=== PATIENT | female | born 1990 | race African-American/Black ===

== ENCOUNTER 2019-03-17 00:15 | Emergency (ER) | payer MEDICAID ==
[~2019-03-17] VITALS: Ht 172.7 cm; Wt 64.0 kg
[~2019-03-17 00:15] MED LIST: DEPAKOTE; GEODON; IBUP-2077 PO
[2019-03-17] MEDS: KETOROLAC 30MG/ML VIAL IV NR ×2 (01:00→02:58)
[2019-03-17 01:22] LABS: BASOPHILS % 0.9 % (0.0-2.0); EOSINOPHILS % 2.9 % (0.0-5.0); HEMATOCRIT. 36.8 % (36.0-48.0); HEMOGLOBIN. 12.3 g/dL (12.0-16.0); LYMPHOCYTES % 42.6 % (20.0-50.0); MEAN CORPUSCULAR HEMOGLOBIN 26.1 pg (28.0-32.0); MEAN CORPUSCULAR VOLUME 78.4 fL (81.0-99.0); MEAN PLATELET VOLUME 8.4 fl (7.4-10.4); MONOCYTES % 10.8 % (2.0-8.0); NEUTROPHILS % 42.8 % (40.0-76.0); PLATELET 241 x1000/uL (130-400); RED CELL DISTRIBUTION WIDTH 14.7 % (11.6-14.6)
[2019-03-17 01:27] LABS: CHLORIDE 105 mEq/L (98-107)
[2019-03-17 03:31] VITALS: BP 122/80
== END 2019-03-17 03:33 | disposition home or self-care (01) ==
LOC: ER 00:15
DX: A60.04 Herpesviral vulvovaginitis (principal); F12.90 Cannabis use, unspecified, uncomplicated
CPT/HCPCS: 36415; 80053; 81025; 85025; 96374; 96376; 99283; J1885

== ENCOUNTER 2019-09-05 08:29 | Emergency (ER) | payer MEDICAID ==
[~2019-09-05] VITALS: Ht 170.2 cm; Wt 71.0 kg
[2019-09-05] MEDS ORDERED: LORAZEPAM 0.5MG TABLET PO ONE (09:30)
[2019-09-05] MEDS ORDERED: IBUPROFEN 400MG TABLET PO ONE (11:30)
[2019-09-05 11:47] LABS: CLARITY URINE CLEAR (CLEAR); COLOR URINE YELLOW (YELLOW); KETONES URINE NEGATIVE (NEGATIVE); LEUKOCYTE ESTERASE URINE TRACE (NEGATIVE); NITRITE URINE NEGATIVE (NEGATIVE); OCCULT BLOOD URINE 3+ (NEGATIVE); PH URINE 7.5 (4.5-8.0); PROTEIN URINE NEGATIVE (NEGATIVE); SPECIFIC GRAVITY URINE 1.012 (1.005-1.030); UROBILINOGEN URINE 0.2 E.U./dL (0.2-1.0)
[2019-09-05] MEDS ORDERED: BACITRACIN ZINC OINT UDPKT TOP ONE (12:15)
[2019-09-05 13:00] VITALS: BP 114/67
== END 2019-09-05 14:08 | disposition home or self-care (01) ==
LOC: ER 08:39
DX: N39.0 Urinary tract infection, site not specified (principal); F41.9 Anxiety disorder, unspecified; F32.9 Major depressive disorder, single episode, unspecified; F12.10 Cannabis abuse, uncomplicated; Z88.2 Allergy status to sulfonamides
CPT/HCPCS: 81003; 81025; 99283; Z7610

== ENCOUNTER 2020-02-13 18:30 | Emergency (ER) | payer MEDICAID, OTHER ==
[~2020-02-13] VITALS: Ht 162.6 cm; Wt 73.0 kg
[2020-02-13 18:35] VITALS: BP 113/72
[2020-02-13] MEDS ORDERED: HYDROCODONE/ACETAMINOPHEN 5/325MG TABLET PO ONE (23:30)
[2020-02-13] MEDS ORDERED: ONDANSETRON 4MG ODT PO ONE (23:30)
[2020-02-14 00:03] LABS: BASOPHILS % 0.4 % (0.0-2.0); EOSINOPHILS % 6.9 % (0.0-5.0); HEMATOCRIT. 41.2 % (36.0-48.0); LYMPHOCYTES % 34.7 % (20.0-50.0); MEAN CORPUSCULAR HEMOGLOBIN 26.8 pg (28.0-32.0); MEAN CORPUSCULAR VOLUME 78.8 fL (81.0-99.0); PLATELET 226 x1000/uL (130-400); RED BLOOD CELL COUNT 5.22 mill/uL (4.2-5.4); RED CELL DISTRIBUTION WIDTH 14.1 % (11.6-14.6)
[2020-02-14 00:13] LABS: CHLORIDE 106 mEq/L (98-107)
[2020-02-14 00:37] LABS: CLARITY URINE CLOUDY (CLEAR); COLOR URINE YELLOW (YELLOW); KETONES URINE TRACE (NEGATIVE); LEUKOCYTE ESTERASE URINE 1+ (NEGATIVE); NITRITE URINE NEGATIVE (NEGATIVE); OCCULT BLOOD URINE 3+ (NEGATIVE); PROTEIN URINE TRACE (NEGATIVE); SPECIFIC GRAVITY URINE 1.027 (1.005-1.030)
== END 2020-02-14 03:35 | disposition home or self-care (01) ==
LOC: ER 18:30
DX: N83.202 Unspecified ovarian cyst, left side (principal); N39.0 Urinary tract infection, site not specified
CPT/HCPCS: 36415; 76830; 76856; 80053; 81003; 81025; 83690; 85025; 99284; Q0162

== ENCOUNTER 2020-02-23 03:57 | Inpatient (IN) | payer MEDICAID, OTHER ==
[~2020-02-23] VITALS: Ht 165.1 cm; Wt 74.8 kg
[2020-02-23] MEDS ORDERED: ONDANSETRON HCL 4MG/2ML INJ IV STA (06:22)
[2020-02-23] MEDS ORDERED: FAMOTIDINE 20MG/2ML VIAL IV STA (06:22)
[2020-02-23] MEDS ORDERED: KETOROLAC 30MG/ML VIAL IV STA (06:22)
[2020-02-23 06:42] LABS: HEMATOCRIT. 35.5 % (36.0-48.0); HEMOGLOBIN. 12.2 g/dL (12.0-16.0); MEAN CORPUSCULAR HEMOGLOBIN 30.3 pg (28.0-32.0); MEAN CORPUSCULAR VOLUME 88.1 fL (81.0-99.0); MEAN PLATELET VOLUME 7.6 fl (7.4-10.4); PLATELET 291 x1000/uL (130-400); RED BLOOD CELL COUNT 4.02 mill/uL (4.2-5.4); RED CELL DISTRIBUTION WIDTH 14.1 % (11.6-14.6)
[2020-02-23] MEDS ORDERED: MAGNESIUM CITRATE 300ML SOLUTION PO ONE (06:45)
[2020-02-23 06:47] LABS: CLARITY URINE CLEAR (CLEAR); COLOR URINE YELLOW (YELLOW); KETONES URINE TRACE (NEGATIVE); LEUKOCYTE ESTERASE URINE NEGATIVE (NEGATIVE); NITRITE URINE NEGATIVE (NEGATIVE); OCCULT BLOOD URINE NEGATIVE (NEGATIVE); PROTEIN URINE TRACE (NEGATIVE); SPECIFIC GRAVITY URINE 1.027 (1.005-1.030)
[2020-02-23 06:47] LABS: CHLORIDE 106 mEq/L (98-107)
[2020-02-23 06:51] LABS: HCG SCREEN NEGATIVE; INR 1.2; PROTHROMBIN TIME 12.5 sec (9.6-11.0)
[2020-02-23 07:53] LABS: PLATELET ESTIMATE NORMAL
[2020-02-23] MEDS ORDERED: MORPHINE SULFATE 4 MG/ML CPJ (NOT FOR IM USE) IV ONE (10:00)
[2020-02-23] MEDS ORDERED: ONDANSETRON HCL 4MG/2ML INJ IV PRN (10:30)
[2020-02-23] MEDS ORDERED: BISACODYL 10MG SUPP PR PRN (10:30)
[2020-02-23] MEDS ORDERED: POTASSIUM CHLORIDE 20MEQ TABLET SR PO NR (10:30)
[2020-02-23] MEDS ORDERED: PIPERACILLIN/TAZ 3.375G PREMIX 50 ML IV NR (10:45)
[2020-02-23 17:00] VITALS: BP 108/62
[2020-02-23] MEDS ORDERED: NAPR-681 MT (17:00)
[2020-02-23] MEDS ORDERED: POLY119P2 MT (17:00)
[2020-02-23] MEDS ORDERED: PIPERACILLIN/TAZOBACTAM 3.375 G in DEXT 5% WATER 100 ML IV SCH (17:00)
[2020-02-23] MEDS ORDERED: ACYC200C MT (17:00)
[2020-02-23] MEDS ORDERED: MORPHINE SULFATE 2 MG/ML CPJ (NOT FOR IM USE) IV NR (18:30)
[2020-02-23] MEDS: PIPERACILLIN/TAZOBACTAM 3.375 G in DEXT 5% WATER 100 ML IV SCH (18:42)
[2020-02-23 20:00] VITALS: BP 96/55
[2020-02-23] MEDS: ACETAMINOPHEN 325MG TABLET PO PRN (21:51)
[2020-02-24] VITALS: BP 94/52
[2020-02-24] MEDS: PIPERACILLIN/TAZOBACTAM 3.375 G in DEXT 5% WATER 100 ML IV SCH ×4 (00:53→18:41)
[2020-02-24 04:00] VITALS: BP 89/56
[2020-02-24 04:15] VITALS: BP 98/54
[2020-02-24 06:52] LABS: CHLORIDE 104 mEq/L (98-107)
[2020-02-24 06:55] LABS: HEMATOCRIT. 32.5 % (36.0-48.0); HEMOGLOBIN. 11.6 g/dL (12.0-16.0); MEAN CORPUSCULAR HEMOGLOBIN 32.7 pg (28.0-32.0); MEAN CORPUSCULAR VOLUME 91.4 fL (81.0-99.0); MEAN PLATELET VOLUME 7.8 fl (7.4-10.4); PLATELET 291 x1000/uL (130-400); RED BLOOD CELL COUNT 3.56 mill/uL (4.2-5.4); RED CELL DISTRIBUTION WIDTH 14.4 % (11.6-14.6)
[2020-02-24 10:35] LABS: *AMPHETAMINES SCREEN URINE NEGATIVE (NEGATIVE); *BARBITURATES SCREEN URINE NEGATIVE (NEGATIVE); *BENZODIAZEPINES SCREEN URINE NEGATIVE (NEGATIVE); *COCAINE SCREEN URINE NEGATIVE (NEGATIVE); CANNABINOID URINE SCREEN NEGATIVE (NEGATIVE); METHADONE URINE SCREEN NEGATIVE (NEGATIVE); PHENCYCLIDINE URINE SCREEN NEGATIVE (NEGATIVE)
[2020-02-24 10:41] LABS: OPIATES URINE SCREEN PRESUMTIVE POSITIVE (NEGATIVE)
[2020-02-24 12:00] VITALS: BP 118/69
[2020-02-24] MEDS ORDERED: NA PHOS,M-B/NA PHOS,DI-BA ENEMA 118ML PR NR (12:45)
[2020-02-24 16:26] LABS: ATYPICAL LYMPHOCYTES 2; PLATELET ESTIMATE NORMAL
[2020-02-24] MEDS: ACETAMINOPHEN 325MG TABLET PO PRN (18:06)
[2020-02-24] MEDS ORDERED: TRAMADOL 50MG TABLET PO PRN (18:30)
[2020-02-24] MEDS ORDERED: HYDROCORTISONE 1% RECTAL CREAM 30GM PR PRN (18:30)
[2020-02-24 20:00] VITALS: BP 110/64
[2020-02-25] VITALS: BP 106/50
[2020-02-25] MEDS: PIPERACILLIN/TAZOBACTAM 3.375 G in DEXT 5% WATER 100 ML IV SCH ×3 (00:10→12:00)
[2020-02-25 04:00] VITALS: BP 101/52
[2020-02-25 08:00] VITALS: BP 99/55
[2020-02-25] MEDS ORDERED: FAMOTIDINE 20MG/2ML VIAL IV SCH (09:00)
[2020-02-25 12:00] VITALS: BP 105/68
[2020-02-25] MEDS ORDERED: ONDA4TAB5 MT (13:05)
[2020-02-25] MEDS ORDERED: FAMO-135 MT (13:05)
[2020-02-25 13:26] VITALS: BP 122/88
== END 2020-02-25 15:18 | disposition home or self-care (01) | DRG 254 ==
LOC: ER 03:57 → 6EST 09:52 → EDBEDREQ 10:01 → EDBEDREQTM 10:01 → CANRESERV 15:04 → ENRESERV 15:04 → EDBEDREQSVC 15:21 → ENRESERV 16:07
PROVIDERS: ADMIT Internal Medicine; ATTEND Internal Medicine
DX: K59.00 Constipation, unspecified (principal); E44.0 Moderate protein-calorie malnutrition; E87.6 Hypokalemia; F41.9 Anxiety disorder, unspecified; F32.9 Major depressive disorder, single episode, unspecified; D72.825 Bandemia; Z68.27 Body mass index [BMI] 27.0-27.9, adult; Z88.2 Allergy status to sulfonamides; Z88.8 Allergy status to other drugs, medicaments and biological substances; Z79.1 Long term (current) use of non-steroidal anti-inflammatories (NSAID); Z79.899 Other long term (current) drug therapy
CPT/HCPCS: 36415; 71045; 74176; 80048; 80053; 80305; 81003; 83605; 84145; 84703; 85025; 93005; 99285; J1885; J2270; J2405; J2543; J3490; J7060

== ENCOUNTER 2020-03-03 09:26 | Emergency (ER) | payer OTHER ==
[~2020-03-03] VITALS: Ht 165.1 cm; Wt 71.0 kg
[~2020-03-03 09:26] MED LIST changes: +ACYC200C MT; +FAMO-135 MT; -IBUP-2077 PO; +ONDA4TAB5 MT; +POLY119P2 MT
[2020-03-03] MEDS ORDERED: KETOROLAC 30MG/ML VIAL IM ONE (10:00)
[2020-03-03 10:33] LABS: CLARITY URINE CLEAR (CLEAR); COLOR URINE DARK YELLOW (YELLOW); KETONES URINE 1+ (NEGATIVE); LEUKOCYTE ESTERASE URINE NEGATIVE (NEGATIVE); NITRITE URINE NEGATIVE (NEGATIVE); OCCULT BLOOD URINE NEGATIVE (NEGATIVE); PROTEIN URINE TRACE (NEGATIVE); SPECIFIC GRAVITY URINE 1.026 (1.005-1.030)
[2020-03-03] MEDS ORDERED: AZITHROMYCIN 500 MG TABLET PO ONE (11:00)
[2020-03-03] MEDS ORDERED: CEFTRIAXONE SODIUM 250 MG/VIAL IM ONE (11:00)
[2020-03-03 11:35] VITALS: BP 112/78
== END 2020-03-03 11:09 | disposition home or self-care (01) ==
LOC: ER 09:26
DX: R10.9 Unspecified abdominal pain (principal); N39.0 Urinary tract infection, site not specified; M25.572 Pain in left ankle and joints of left foot; M25.571 Pain in right ankle and joints of right foot; Z88.2 Allergy status to sulfonamides; Z79.899 Other long term (current) drug therapy; Z98.890 Other specified postprocedural states
CPT/HCPCS: 81003; 81025; 96372; 99284; J0696; J1885

== ENCOUNTER 2020-04-13 10:59 | Emergency (ER) | payer OTHER ==
[~2020-04-13] VITALS: Ht 165.1 cm; Wt 72.0 kg
[2020-04-13 12:51] LABS: BASOPHILS % 0.9 % (0.0-2.0); EOSINOPHILS % 4.6 % (0.0-5.0); HEMATOCRIT. 41.2 % (36.0-48.0); HEMOGLOBIN. 13.2 g/dL (12.0-16.0); LYMPHOCYTES % 50.9 % (20.0-50.0); MEAN CORPUSCULAR HEMOGLOBIN 24.7 pg (28.0-32.0); MEAN CORPUSCULAR VOLUME 77.1 fL (81.0-99.0); MEAN PLATELET VOLUME 8.4 fl (7.4-10.4); MONOCYTES % 9.2 % (2.0-8.0); NEUTROPHILS % 34.4 % (40.0-76.0); PLATELET 235 x1000/uL (130-400); RED BLOOD CELL COUNT 5.35 mill/uL (4.2-5.4); RED CELL DISTRIBUTION WIDTH 14.3 % (11.6-14.6)
[2020-04-13 12:59] LABS: CHLORIDE 110 mEq/L (98-107)
[2020-04-13] MEDS ORDERED: ACETAMINOPHEN 325MG TABLET PO ONE (13:45)
[2020-04-13 14:28] LABS: CLARITY URINE CLEAR (CLEAR); COLOR URINE YELLOW (YELLOW); KETONES URINE NEGATIVE (NEGATIVE); LEUKOCYTE ESTERASE URINE NEGATIVE (NEGATIVE); NITRITE URINE NEGATIVE (NEGATIVE); OCCULT BLOOD URINE NEGATIVE (NEGATIVE); PH URINE 6.5 (4.5-8.0); PROTEIN URINE NEGATIVE (NEGATIVE); SPECIFIC GRAVITY URINE 1.024 (1.005-1.030)
[2020-04-13 14:51] VITALS: BP 102/53
[2020-04-13] MEDS ORDERED: CEFTRIAXONE SODIUM 250 MG/VIAL IM ONE (16:15)
[2020-04-13] MEDS ORDERED: LIDOCAINE HCL 1% 20ML VIAL (Pyxis) INJ INFIL ONE (16:15)
[2020-04-13] MEDS ORDERED: AZITHROMYCIN 500 MG TABLET PO ONE (16:15)
== END 2020-04-13 18:40 | disposition home or self-care (01) ==
LOC: ER 10:59
DX: Z03.818 Encounter for observation for suspected exposure to other biological agents ruled out (principal); A64 Unspecified sexually transmitted disease; R42 Dizziness and giddiness; Z59.0 Homelessness
CPT/HCPCS: 36415; 80053; 81003; 81025; 82962; 85025; 87635; 93005; 99283; C9803; J0696; J3490; 87426

== ENCOUNTER 2020-04-27 22:20 | Emergency (ER) | payer MEDICAID, OTHER ==
[~2020-04-27] VITALS: Ht 165.1 cm; Wt 66.0 kg
[2020-04-27 22:42] VITALS: BP 111/79
== END 2020-04-28 04:24 | disposition left against medical advice (07) ==
LOC: ER 22:20
DX: R42 Dizziness and giddiness (principal); Z53.21 Procedure and treatment not carried out due to patient leaving prior to being seen by health care provider

== ENCOUNTER 2020-06-29 14:29 | Emergency (ER) | payer MEDICAID ==
[~2020-06-29] VITALS: Ht 162.6 cm; Wt 70.0 kg
[2020-06-29] MEDS ORDERED: KETOROLAC 30MG/ML VIAL IM ONE (15:30)
[2020-06-29] MEDS ORDERED: AZITHROMYCIN 500 MG TABLET PO ONE (15:30)
[2020-06-29] MEDS ORDERED: CEFTRIAXONE SODIUM 250 MG/VIAL IM ONE (15:30)
[2020-06-29] MEDS ORDERED: ONDANSETRON HCL 4MG TABLET PO ONE (15:30)
[2020-06-29 17:52] LABS: CLARITY URINE CLOUDY (CLEAR); COLOR URINE YELLOW (YELLOW); KETONES URINE TRACE (NEGATIVE); LEUKOCYTE ESTERASE URINE TRACE (NEGATIVE); NITRITE URINE NEGATIVE (NEGATIVE); OCCULT BLOOD URINE NEGATIVE (NEGATIVE); PH URINE 6.5 (4.5-8.0); PROTEIN URINE NEGATIVE (NEGATIVE); SPECIFIC GRAVITY URINE 1.023 (1.005-1.030)
[2020-06-29 18:49] VITALS: BP 118/78
[2020-07-02 09:10] LABS: NEISSERIA GONORRHOEAE NAA Negative (Negative)
== END 2020-06-29 19:07 | disposition home or self-care (01) ==
LOC: ER 14:29
DX: M25.572 Pain in left ankle and joints of left foot (principal); N76.0 Acute vaginitis; Z20.2 Contact with and (suspected) exposure to infections with a predominantly sexual mode of transmission; Z88.2 Allergy status to sulfonamides; Z88.1 Allergy status to other antibiotic agents; Z79.899 Other long term (current) drug therapy
CPT/HCPCS: 73610; 73630; 81003; 87491; 87591; 96372; 99284; J0696; J1885

== ENCOUNTER 2020-10-23 14:10 | Emergency (ER) | payer MEDICAID, OTHER ==
[~2020-10-23] VITALS: Ht 162.6 cm; Wt 75.0 kg
[2020-10-23] MEDS ORDERED: KETOROLAC 30MG/ML VIAL IV STA (18:57)
[2020-10-23] MEDS ORDERED: SODIUM CHLORIDE 0.9% 1,000 ML IV ONE (19:00)
[2020-10-23 19:30] LABS: BASOPHILS % 0.5 % (0.0-2.0); EOSINOPHILS % 2.1 % (0.0-5.0); HEMATOCRIT. 37.3 % (36.0-48.0); HEMOGLOBIN. 12.2 g/dL (12.0-16.0); LYMPHOCYTES % 36.4 % (20.0-50.0); MEAN CORPUSCULAR HEMOGLOBIN 25.3 pg (28.0-32.0); MEAN CORPUSCULAR VOLUME 77.7 fL (81.0-99.0); MEAN PLATELET VOLUME 7.8 fl (7.4-10.4); MONOCYTES % 8.7 % (2.0-8.0); NEUTROPHILS % 52.3 % (40.0-76.0); PLATELET 234 x1000/uL (130-400); RED CELL DISTRIBUTION WIDTH 14.8 % (11.6-14.6)
[2020-10-23 19:39] LABS: CHLORIDE 102 mEq/L (98-107); INR 1.2; PROTHROMBIN TIME 12.3 sec (9.6-11.0)
[2020-10-23 19:52] LABS: HCG SCREEN POSITIVE
[2020-10-23 20:10] LABS: CLARITY URINE CLEAR (CLEAR); COLOR URINE YELLOW (YELLOW); KETONES URINE 2+ (NEGATIVE); LEUKOCYTE ESTERASE URINE TRACE (NEGATIVE); NITRITE URINE NEGATIVE (NEGATIVE); OCCULT BLOOD URINE NEGATIVE (NEGATIVE); PROTEIN URINE NEGATIVE (NEGATIVE); SPECIFIC GRAVITY URINE 1.019 (1.005-1.030)
[2020-10-23 20:30] LABS: *AMPHETAMINES SCREEN URINE NEGATIVE (NEGATIVE); *BARBITURATES SCREEN URINE NEGATIVE (NEGATIVE); *BENZODIAZEPINES SCREEN URINE NEGATIVE (NEGATIVE); *COCAINE SCREEN URINE NEGATIVE (NEGATIVE); METHADONE URINE SCREEN NEGATIVE (NEGATIVE); OPIATES URINE SCREEN NEGATIVE (NEGATIVE)
[2020-10-23 20:31] LABS: CANNABINOID URINE SCREEN NEGATIVE (NEGATIVE); PHENCYCLIDINE URINE SCREEN NEGATIVE (NEGATIVE)
[2020-10-23] MEDS ORDERED: ACETAMINOPHEN 325MG TABLET PO ONE (23:00)
[2020-10-23 23:12] VITALS: BP 119/65
== END 2020-10-23 23:24 | disposition home or self-care (01) ==
LOC: ER 14:10
DX: O26.891 Other specified pregnancy related conditions, first trimester (principal); R10.33 Periumbilical pain; O34.81 Maternal care for other abnormalities of pelvic organs, first trimester; N83.201 Unspecified ovarian cyst, right side; R03.0 Elevated blood-pressure reading, without diagnosis of hypertension; K59.00 Constipation, unspecified; Z3A.01 Less than 8 weeks gestation of pregnancy; Z86.59 Personal history of other mental and behavioral disorders; Z79.899 Other long term (current) drug therapy
CPT/HCPCS: 36415; 76801; 76817; 80053; 80305; 81003; 83690; 84702; 84703; 85025; 85610; 93005; 96361; 96374; 99285; J1885; J7030